=== PATIENT | male | born 1995 | race Caucasian/White ===

== ENCOUNTER 2024-07-22 09:46 | Emergency (ER) | payer MEDICAID ==
[~2024-07-22] VITALS: Ht 172.7 cm; Wt 122.7 kg
[2024-07-22] MEDS: proparacaine 0.5% ophthalmic drops 15ml EACHEYE ONE (11:01)
[2024-07-22] MEDS: fluorescein sod 1mg ophthalmic strip LEFTEYE ONE (11:02)
[2024-07-22] MEDS ORDERED: POLOS EACHEYE (11:19)
[2024-07-22] MEDS ORDERED: KETO5DRO82 LEFTEYE (11:19)
[2024-07-22 11:23] VITALS: BP 158/101; PULSE 67; RESP 16; TEMP 97.9; O2SAT 98
== END 2024-07-22 11:24 | disposition home or self-care (01) ==
LOC: ER 09:46
DX: T15.12XA Foreign body in conjunctival sac, left eye, initial encounter (principal); R11.10 Vomiting, unspecified; Z88.0 Allergy status to penicillin; X58.XXXA Exposure to other specified factors, initial encounter; Y93.89 Activity, other specified; Y92.89 Other specified places as the place of occurrence of the external cause; Y99.8 Other external cause status
CPT/HCPCS: 99283; 99284

== ENCOUNTER 2024-09-14 06:07 | Emergency (ER) | payer MEDICAID ==
[~2024-09-14] VITALS: Ht 175.3 cm; Wt 119.3 kg
[~2024-09-14 06:07] MED LIST: KETO5DRO82 LEFTEYE
[2024-09-14 06:14] VITALS: BP 138/92; PULSE 108; RESP 18; O2SAT 93
[2024-09-14 09:34] VITALS: TEMP 98
== END 2024-09-14 09:38 | disposition left against medical advice (07) ==
LOC: ER 06:07
DX: M54.50 Low back pain, unspecified (principal); Z53.21 Procedure and treatment not carried out due to patient leaving prior to being seen by health care provider

== ENCOUNTER 2024-11-06 13:50 | Inpatient (IN) | payer MEDICAID ==
[~2024-11-06] VITALS: Ht 172.7 cm; Wt 106.6 kg
[2024-11-06] MEDS: HYDROmorphone 1 mg/ml syringe IV ONE ×4 (14:11→16:22)
[2024-11-06] MEDS: albuterol 2.5 MG/3 ML nebule NEB ONE (14:55)
[2024-11-06] MEDS ORDERED: morphine 2 MG/ML inj. syringe IV PRN ×3 (14:55→22:25)
[2024-11-06 15:24] LABS: BASOPHILS # (AUTO) 0.1 X10'3 (0-0.2); BASOPHILS % (AUTO) 0.5 % (0-1); EOSINOPHILS # (AUTO) 0.2 X10'3 (0-0.9); EOSINOPHILS % (AUTO) 1.3 % (0-6); HEMATOCRIT 43.9 % (42.0-52.0); HEMOGLOBIN 14.8 g/dl (14.0-17.9); LYMPHOCYTES # (AUTO) 1.9 X10'3 (1.1-4.8); LYMPHOCYTES % (AUTO) 13.8 % (21-51); MEAN CORPUSCULAR HEMOGLOBIN 31.3 PG (27.0-31.0); MEAN CORPUSCULAR HGB CONC 33.7 g/dL (33.0-36.5); MEAN CORPUSCULAR VOLUME 92.9 FL (78-98); MEAN PLATELET VOLUME 9.6 FL (7.4-10.4); MONOCYTES # (AUTO) 1.3 X10'3 (0-0.9); MONOCYTES % (AUTO) 9.5 % (2-12); NEUTROPHILS # (AUTO) 10.3 X10'3 (1.8-7.7); NEUTROPHILS % (AUTO) 74.9 % (42-75); PLATELET COUNT 254 X10'3 (140-440); RED BLOOD COUNT 4.72 X10'6 (4.70-6.10); RED CELL DISTRIBUTION WIDTH 13.2 % (11.5-14.5); WHITE BLOOD COUNT 13.7 X10'3 (4.5-11.0)
[2024-11-06 15:36] LABS: ALBUMIN 3.9 G/DL (3.4-5.0); ANION GAP 9 (8-16); BLOOD UREA NITROGEN 11 MG/DL (7-18); BUN/CREATININE RATIO 11.8 (10.0-20.0); CALCIUM 9.2 MG/DL (8.5-10.1); CHLORIDE 104 MMOL/L (99-107); CREATININE 0.93 MG/DL (0.60-1.10); GLUCOSE 100 MG/DL (70-104); POTASSIUM 3.5 MMOL/L (3.5-5.1); SODIUM 139 MMOL/L (135-145); TOTAL CARBON DIOXIDE 25.6 MMOL/L (24-32); eCRCL 112 ML/MIN; eGFR > 90 ML/MIN
[2024-11-06 15:38] LABS: APTT 27 SECONDS (22-32); INR 1.1 INR; PROTHROMBIN TIME 11.7 SECONDS (9.0-12.0)
[2024-11-06] MEDS: LORazepam 2 mg/ml vial IV ONE (15:55)
[2024-11-06] MEDS: ondansetron/PF 4mg/2ml inj IV ONE ×2 (15:56→16:22)
[2024-11-06] MEDS ORDERED: potassium Cl 20 mEq SR tablet PO PRN ×2 (16:35)
[2024-11-06] MEDS ORDERED: HYDROmorphone inj. 0.5 MG/0.5 ML DISP.SYRIN IV PRN (16:35)
[2024-11-06] MEDS ORDERED: ondansetron/PF 4mg/2ml inj IV PRN ×3 (16:35→23:20)
[2024-11-06] MEDS ORDERED: magnesium sulf-water 2g/50mL 50 ML IV PRN (16:35)
[2024-11-06] MEDS ORDERED: magnesium sulf-water 4G/100mL 100 ML IV PRN (16:35)
[2024-11-06] MEDS ORDERED: acetaminophen 325mg tablet PO PRN ×2 (16:35→23:20)
[2024-11-06] MEDS ORDERED: potassium Cl 40MEQ/1/2NS 520ml 520 ML IV PRN (16:35)
[2024-11-06] MEDS ORDERED: magnesium Cl slow-release 64mg tablet PO PRN (16:35)
[2024-11-06] MEDS: proCHLORperazine 10 MG/2 ml inj IV ONE (18:41)
[2024-11-06] MEDS ORDERED: cloNIDine hcl/PF 100mcg/ml inj ONE (18:50)
[2024-11-06] MEDS ORDERED: sevoflurane 250ml liquid IH ONE (19:21)
[2024-11-06] MEDS ORDERED: midazolam 1 mg/ML 2ml injection ONE (19:29)
[2024-11-06] MEDS: K and/or MAG REPLACEMENT MC SCH (20:00)
[2024-11-06] MEDS ORDERED: morphine 4 MG/ML inj SYRINge IV PRN (22:25)
[2024-11-06] MEDS ORDERED: proCHLORperazine 10 MG/2 ml inj IV PRN (22:25)
[2024-11-06] MEDS ORDERED: hydrALAZINE 20mg/ml inj. IV PRN (22:25)
[2024-11-06] MEDS ORDERED: labetalol 20mg/4ml (5mg/ml) syringe IV PRN (22:25)
[2024-11-06] MEDS ORDERED: ringers solution, lacted 1,000 ML IV SCH (22:25)
[2024-11-06] MEDS ORDERED: meperidine/PF 25mg/ml syringe IV PRN ×3 (22:25)
[2024-11-06] MEDS ORDERED: 0.9 % SODIUM CHLORIDE 10 ML VIAL ONE ×3 (22:28→22:29)
[2024-11-06] MEDS ORDERED: LIDOcaine 2% (20mg/ml) 5ml vial ONE (22:28)
[2024-11-06] MEDS ORDERED: propofol inj 20 ML IV ONE (22:28)
[2024-11-06] MEDS ORDERED: ROPIVAcaine 0.5% (5mg/ml) 30ml vial ONE (22:28)
[2024-11-06] MEDS ORDERED: ondansetron/PF 4mg/2ml inj ONE (22:28)
[2024-11-06] MEDS ORDERED: fentaNYL /PF 50mcg/ml 5ml ampule ONE (22:28)
[2024-11-06] MEDS ORDERED: dexamethasone sod phosphate 4mg/ml inj. ONE (22:29)
[2024-11-06] MEDS ORDERED: rocuronium 10mg/ml inj IV ONE (22:29)
[2024-11-06] MEDS ORDERED: ceFAZolin 1000mg inj ONE ×3 (22:29)
[2024-11-06] MEDS ORDERED: magnesium hydroxide 30ml (MOM) UD suspension PO PRN (23:20)
[2024-11-06] MEDS ORDERED: naloxone 0.4 mg/ml inj IV PRN (23:20)
[2024-11-06] MEDS ORDERED: diphenhydrAMINE 25mg capsule PO PRN ×2 (23:20)
[2024-11-06] MEDS ORDERED: bisacodyl 10mg suppository rectal RC PRN (23:20)
[2024-11-06] MEDS ORDERED: glycopyrrolate 0.2mg/ml inj ONE (23:25)
[2024-11-06] MEDS ORDERED: neostigmine methylsulfate 1 MG/ML 10ml vial ONE (23:25)
[2024-11-06 23:35] VITALS: BP 135/63; PULSE 100; RESP 16; O2SAT 94
[2024-11-06 23:40] VITALS: BP 136/63; PULSE 100; RESP 27; O2SAT 89
[2024-11-06 23:50] VITALS: BP 125/65; PULSE 84; RESP 25; O2SAT 89
[2024-11-06] MEDS: ipratropium/albuterol 3ml nebule NEB PRN (23:59)
[2024-11-07] VITALS (24 sets, daily range): BP systolic 103–155; BP diastolic 43–89; PULSE 78–112; RESP 12–25; TEMP 97.6–98.4; O2SAT 88–96
[2024-11-07] MEDS ORDERED: ceFAZolin/D5W- 1GM premix 50 ML IV SCH
[2024-11-07] MEDS: acetaminophen 1,000mg/100ml IV 100 ML IV ONE (00:27)
[2024-11-07] MEDS: furosemide 20 MG/2 ML vial IV STA (00:52)
[2024-11-07] MEDS: vancomycin/NS 1 GM ADD-VANTAGE 250 ML IV SCH (00:53)
[2024-11-07] MEDS: normal saline 1000ml 1,000 ML IV SCH (02:35)
[2024-11-07] MEDS: ceFAZolin/D5W- 1GM premix 50 ML IV SCH (04:31)
[2024-11-07 04:38] LABS: BASOPHILS % (AUTO) 0.1 % (0-1); EOSINOPHILS % (AUTO) 0 % (0-6); HEMATOCRIT 43.2 % (42.0-52.0); HEMOGLOBIN 14.6 g/dl (14.0-17.9); LYMPHOCYTES # (AUTO) 0.9 X10'3 (1.1-4.8); LYMPHOCYTES % (AUTO) 3.6 % (21-51); MEAN CORPUSCULAR HEMOGLOBIN 31.6 PG (27.0-31.0); MEAN CORPUSCULAR HGB CONC 33.7 g/dL (33.0-36.5); MEAN CORPUSCULAR VOLUME 93.9 FL (78-98); MEAN PLATELET VOLUME 9.6 FL (7.4-10.4); MONOCYTES # (AUTO) 1.9 X10'3 (0-0.9); MONOCYTES % (AUTO) 7.5 % (2-12); NEUTROPHILS # (AUTO) 22.5 X10'3 (1.8-7.7); NEUTROPHILS % (AUTO) 88.8 % (42-75); PLATELET COUNT 259 X10'3 (140-440); RED BLOOD COUNT 4.61 X10'6 (4.70-6.10); RED CELL DISTRIBUTION WIDTH 13.4 % (11.5-14.5)
[2024-11-07 04:45] LABS: WHITE BLOOD COUNT 25.4 X10'3 (4.5-11.0)
[2024-11-07 04:52] LABS: ALBUMIN 3.9 G/DL (3.4-5.0); ANION GAP 9 (8-16); BLOOD UREA NITROGEN 12 MG/DL (7-18); BUN/CREATININE RATIO 10.7 (10.0-20.0); CALCIUM 9.2 MG/DL (8.5-10.1); CHLORIDE 104 MMOL/L (99-107); CREATININE 1.12 MG/DL (0.60-1.10); GLUCOSE 147 MG/DL (70-104); MAGNESIUM 1.9 MG/DL (1.5-2.4); SODIUM 143 MMOL/L (135-145); TOTAL CARBON DIOXIDE 29.8 MMOL/L (24-32); eCRCL 93 ML/MIN; eGFR 77 ML/MIN
[2024-11-07 04:56] LABS: TOTAL CELLS COUNTED 100
[2024-11-07] MEDS: HYDROmorphone/PF 0.2 MG/ML SYRINGE IV PRN (05:10)
[2024-11-07] MEDS: HYDROcodone/acetaminophen 5mg/325mg tablet PO PRN (07:10)
[2024-11-07] MEDS ORDERED: NO HOME MEDS (07:17)
[2024-11-07] MEDS ORDERED: vancomycin/NS 1 GM ADD-VANTAGE 250 ML IV SCH (08:00)
[2024-11-07] MEDS: vancomycin/NS 1 GM ADD-VANTAGE 250 ML IV ONE (12:00)
[2024-11-07] MEDS: gabapentin 100mg capsule PO SCH (12:17)
[2024-11-07] MEDS: HYDROcodone/acetaminophen 10/325mg tab PO PRN (12:18)
[2024-11-07] MEDS ORDERED: HYDR-3972 PO (13:31)
[2024-11-07] MEDS ORDERED: GABA-530 PO (13:31)
[2024-11-07] MEDS ORDERED: OXYC-149 PO (15:12)
[2024-11-07] MEDS ORDERED: sennosides 8.6mg tablet PO SCH (21:00)
== END 2024-11-07 17:08 | disposition home or self-care (01) | DRG 313 ==
LOC: ER 13:50 → ED HOLD 16:35 → PACU 11-07 00:01 → SUR 3N 11-07 02:09
PROVIDERS: ADMIT Internal Medicine; ATTEND Internal Medicine
PROC: 0QSJ04Z Reposition Right Fibula with Internal Fixation Device, Open Approach (ICD-10-PCS; 2024-11-06)
PROC: 0QSG04Z Reposition Right Tibia with Internal Fixation Device, Open Approach (ICD-10-PCS; 2024-11-06)
PROC: 0QSG04Z Reposition Right Tibia with Internal Fixation Device, Open Approach (ICD-10-PCS; principal; 2024-11-06 19:21)
DX: S82.851A Displaced trimalleolar fracture of right lower leg, initial encounter for closed fracture (principal); D72.829 Elevated white blood cell count, unspecified; F17.200 Nicotine dependence, unspecified, uncomplicated; J44.9 Chronic obstructive pulmonary disease, unspecified; Z88.0 Allergy status to penicillin; V00.131A Fall from skateboard, initial encounter; Y93.89 Activity, other specified; Y92.89 Other specified places as the place of occurrence of the external cause; Y99.8 Other external cause status
CPT/HCPCS: 36415; 71045; 73590; 73610; 76000; 80048; 82948; 83036; 83735; 84145; 85007; 85025; 85610; 85730; 87081; 94640; 94760; 97161; 97530; 97535; 99285; A4615; A4618; A6446; A6449; A7000; C1713; G0378; J0131; J0690; J0735; J0780; J1100; J1171; J1940; J2003; J2060; J2250; J2405; J2704; J2710; J2795; J3010; J3370; J3490; J7030; J7120